=== PATIENT | female | born 1970 | race American Indian/Alaskan Native ===

== ENCOUNTER → 2022-11-30 | Outpatient (CLI) | payer BC ==
[2022-11-30 10:20] LABS: Urine Bacteria NONE SEEN /hpf (None Seen); Urine Blood Negative /uL (Negative); Urine Specific Gravity 1.014 (1.001-1.035); Urine WBC <1 /hpf (0 - 5)
[2022-11-30 10:52] LABS: Free T3 3.17 pg/mL (2.3-4.2); Free T4 (Free Thyroxine) 1.15 ng/dL (0.89-1.76); T3 Total 1.27 ng/mL (0.60-1.81)
[2022-11-30 16:33] LABS: Anion Gap 6 (5-15); Carbon Dioxide 26 mmol/L (21-32); Chloride 101 mmol/L (98-107); Glucose 244 mg/dL (74-106); Potassium 4.3 mmol/L (3.5-5.1); Sodium 133 mmol/L (136-145)
[2022-11-30 16:34] LABS: Alanine Aminotransferase 33 U/L (13-56); Albumin 3.4 g/dL (3.4-5.0); Alkaline Phosphatase 124 U/L (45-117); Aspartate Aminotransferase 19 U/L (15-37); Bilirubin, Total 0.3 mg/dL (0.2-1.0); Blood Urea Nitrogen 18 mg/dL (7-18); Calcium 9.9 mg/dL (8.5-10.1); GFR African American 70 mL/min; GFR Non-African American 58 mL/min; Total Protein 8.4 g/dL (6.4-8.2)
[2022-11-30 19:10] LABS: Bilirubin, Direct < 0.1 mg/dL (0-0.2); Cholesterol 296 mg/dL (< 200); HDL Cholesterol 89 mg/dL (40-59); LDL Cholesterol 166 mg/dL (< 100); Magnesium 1.7 mg/dL (1.6-2.6); Triglycerides 311 mg/dL (< 150)
== END | disposition home or self-care (01) ==
LOC: LAB 09:34
PROVIDERS: ATTEND Family Medicine
DX: Z13.228 Encounter for screening for other metabolic disorders (principal); E11.9 Type 2 diabetes mellitus without complications; E78.2 Mixed hyperlipidemia
CPT/HCPCS: 36415; 80053; 80061; 80076; 81001; 83036; 83735; 84439; 84443; 84480; 84481; 85018; 87086

== ENCOUNTER → 2023-04-04 | Outpatient (CLI) | payer BC ==
[2023-04-04 12:28] LABS: Basophils # (auto) 0 10 ^3/uL (0-0.2); Basophils % (auto) 0.3 % (0.0-2.0); Eosinophils # (auto) 0.2 10 ^3/uL (0-0.8); Eosinophils % (auto) 2.3 % (0.0-7.0); Lymphocytes # (auto) 2.8 10 ^3/uL (0.4-5.4); Lymphocytes % (auto) 26.6 % (10.0-50.0); Mean Corpuscular Hemoglobin 29.1 pg (28.0-32.0); Mean Corpuscular Hgb Conc. 33.2 g/dL (32.0-36.0); Mean Corpuscular Volume 87.5 fL (80.0-100.0); Monocytes # (auto) 0.6 10 ^3/uL (0-1.3); Monocytes % (auto) 6.2 % (0.0-12.0); Neutrophils # (auto) 6.7 10 ^3/uL (1.6-8.6); Neutrophils % (auto) 64.6 % (37.0-80.0); Nucleated Red Blood Cells % 0.3 %; Red Blood Cells 4.46 10^6/uL (4.0-5.20); White Blood Cell 10.4 10^3/uL (4.4-10.8)
[2023-04-04 13:05] LABS: Alanine Aminotransferase 32 U/L (7-40); Albumin 4.5 g/dL (3.2-4.8); Alkaline Phosphatase 128 U/L (46-116); Anion Gap 6.4 (5-15); Aspartate Aminotransferase 21 U/L (13-40); BUN/Creatinine Ratio 16.7 (10.0-20.0); Bilirubin, Direct < 0.1 mg/dL (<0.3); Bilirubin, Total 0.4 mg/dL (0.2-1.0); Blood Urea Nitrogen 22 mg/dL (9-23); Calcium 9.5 mg/dL (8.5-10.1); Carbon Dioxide 27.6 mmol/L (20-30); Chloride 106 mmol/L (98-107); Cholesterol 228 mg/dL (< 200); Glucose 142 mg/dL (74-106); HDL Cholesterol 83 mg/dL (40-59); LDL Cholesterol 109 mg/dL (< 100); Potassium 4.6 mmol/L (3.5-5.1); Sodium 140 mmol/L (136-145); Total Protein 7.2 g/dL (5.7-8.2); Triglycerides 267 mg/dL (< 150)
[2023-04-04 13:55] LABS: Urine Bacteria FEW /hpf (None Seen); Urine Blood Negative /uL (Negative); Urine Clarity HAZY (Clear); Urine Color Yellow (Yellow); Urine Protein, UAD 2+ (Negative); Urine Specific Gravity 1.019 (1.001-1.035); Urine Urobilinogen Normal (Negative); Urine WBC 1 /hpf (0 - 5)
[2023-04-04 14:50] LABS: Free T3 2.68 pg/mL (2.3-4.2); T3 Total 0.98 ng/mL (0.60-1.81)
[2023-04-04 14:51] LABS: Free T4 (Free Thyroxine) 0.85 ng/dL (0.89-1.76)
== END | disposition home or self-care (01) ==
LOC: LAB 12:02
PROVIDERS: ATTEND Family Medicine
DX: Z13.228 Encounter for screening for other metabolic disorders (principal); E11.9 Type 2 diabetes mellitus without complications; E78.2 Mixed hyperlipidemia
CPT/HCPCS: 36415; 80053; 80061; 80076; 81001; 84439; 84443; 84480; 84481; 85025; 87086

== ENCOUNTER → 2023-10-30 | Outpatient (CLI) | payer BC ==
[2023-10-30 13:03] LABS: Alanine Aminotransferase 19 U/L (7-40); Albumin 4.7 g/dL (3.2-4.8); Alkaline Phosphatase 123 U/L (46-116); Anion Gap 7 (5-15); Aspartate Aminotransferase 17 U/L (13-40); BUN/Creatinine Ratio 10.1 (10.0-20.0); Blood Urea Nitrogen 12 mg/dL (9-23); Carbon Dioxide 29 mmol/L (20-30); Chloride 102 mmol/L (98-107); Cholesterol 243 mg/dL (< 200); Glucose 192 mg/dL (74-106); HDL Cholesterol 70 mg/dL (40-59); LDL Cholesterol 134 mg/dL (< 100); Potassium 4.2 mmol/L (3.5-5.1); Sodium 138 mmol/L (136-145); Triglycerides 214 mg/dL (< 150)
[2023-10-30 13:04] LABS: Bilirubin, Total 0.4 mg/dL (0.2-1.0); Total Protein 7.4 g/dL (5.7-8.2)
== END | disposition home or self-care (01) ==
LOC: LAB 11:06
PROVIDERS: ATTEND Family Medicine
DX: I10 Essential (primary) hypertension (principal); E11.9 Type 2 diabetes mellitus without complications; E78.2 Mixed hyperlipidemia
CPT/HCPCS: 36415; 80053; 80061; 83036

== ENCOUNTER → 2024-05-17 | Outpatient (CLI) | payer BC ==
[2024-05-17 11:09] LABS: Basophils # (auto) 0 10 ^3/uL (0-0.2); Basophils % (auto) 0.4 % (0.0-2.0); Eosinophils # (auto) 0.1 10 ^3/uL (0-0.8); Eosinophils % (auto) 1.4 % (0.0-7.0); Hematocrit 41.6 % (36.0-46.0); Hemoglobin 14.6 g/dL (12.2-16.2); Lymphocytes # (auto) 1.9 10 ^3/uL (0.4-5.4); Lymphocytes % (auto) 18.6 % (10.0-50.0); Mean Corpuscular Hemoglobin 30.2 pg (28.0-32.0); Mean Corpuscular Volume 86.3 fL (80.0-100.0); Monocytes # (auto) 0.5 10 ^3/uL (0-1.3); Neutrophils # (auto) 7.6 10 ^3/uL (1.6-8.6); Neutrophils % (auto) 74.6 % (37.0-80.0); Nucleated Red Blood Cells % 0.1 %; Platelet Count (auto) 330 10^3/uL (140-450); Red Blood Cells 4.82 10^6/uL (4.0-5.20); Red Cell Distribution Width 14.8 % (11.8-14.3); White Blood Cell 10.1 10^3/uL (4.4-10.8)
[2024-05-17 11:12] LABS: Urine Bacteria FEW /hpf (None Seen); Urine Blood Negative /uL (Negative); Urine Color Light-Yellow (Yellow); Urine Hyaline Cast FEW /lpf (0 - 2); Urine Mucus FEW (None Seen); Urine Protein, UAD 3+ (Negative); Urine Specific Gravity 1.024 (1.001-1.035); Urine Urobilinogen Normal (Negative); Urine WBC 7 /hpf (0 - 5)
[2024-05-17 11:14] LABS: Urine Clarity HAZY (Clear)
[2024-05-17 11:39] LABS: % Iron Saturation 23.1 % (15-50)
[2024-05-17 11:47] LABS: Alanine Aminotransferase 19 U/L (7-40); Albumin 4.8 g/dL (3.2-4.8); Alkaline Phosphatase 136 U/L (46-116); Anion Gap 9 (5-15); Aspartate Aminotransferase 13 U/L (13-40); BUN/Creatinine Ratio 11.5 (10.0-20.0); Bilirubin, Total 0.4 mg/dL (0.2-1.0); Blood Urea Nitrogen 12 mg/dL (9-23); Calcium 10.4 mg/dL (8.7-10.4); Carbon Dioxide 27 mmol/L (20-31); Chloride 102 mmol/L (98-107); Cholesterol 322 mg/dL (< 200); Glucose 158 mg/dL (74-106); HDL Cholesterol 88 mg/dL (40-59); LDL Cholesterol 187 mg/dL (< 100); Potassium 4.4 mmol/L (3.5-5.1); Sodium 138 mmol/L (136-145); Triglycerides 306 mg/dL (< 150)
[2024-05-17 12:10] LABS: Uric Acid 7.6 mg/dL (3.1-7.8)
== END | disposition home or self-care (01) ==
LOC: LAB 10:29
PROVIDERS: ATTEND Family Medicine
DX: E11.22 Type 2 diabetes mellitus with diabetic chronic kidney disease (principal); N18.31 Chronic kidney disease, stage 3a; R79.89 Other specified abnormal findings of blood chemistry; Z00.00 Encounter for general adult medical examination without abnormal findings
CPT/HCPCS: 36415; 80053; 80061; 81001; 82306; 82607; 83036; 83540; 83550; 84403; 84443; 84550; 85025